=== PATIENT | male | born 1960 | race Caucasian/White ===

== ENCOUNTER 2016-12-06 09:30 | Day surgery (SDC) | payer OTHER ==
[~2016-12-06] VITALS: Ht 177.8 cm; Wt 83.9 kg
[~2016-12-06 09:30] MED LIST: NO MEDS; Sodium Chloride LOK Flush 10 mL Syringe IV PRN; fentaNYL-PF 50 mCg/mL 2 mL Inj IVPUSH PRN
[2016-12-06 09:40] VITALS: BP 155/98; PULSE 62; RESP 16; O2SAT 98
[2016-12-06] MEDS ORDERED: SIME180C42 PO (09:44)
[2016-12-06] MEDS ORDERED: ASPI325T32 PO (09:44)
[2016-12-06] MEDS: 0.9% Sodium Chloride 1,000 ML IV SCH ×3 (09:51→10:48)
[2016-12-06 11:00] VITALS: BP 157/100; PULSE 68; RESP 12; O2SAT 100
[2016-12-06 11:07] VITALS: BP 161/93; PULSE 74; RESP 12; O2SAT 99
--- NOTE | 2016-12-06 11:25 | ENDO ---
[address] [address] ENDOSCOPY PROCEDURE PATIENT: YAIR CURRAN : 1960 MR#: [id number] ADMIT: 12/06/2016 JOB ID: [id number] DATE: 12/06/2016 PROCEDURE: Colonoscopy. INDICATION: Colon cancer screening. The patient has a history of Hirschsprung's. The patient's ASA classification is 2. Mallampati score is 2. MEDICATIONS: None. INSTRUMENT USED: PCF H 180 AL PREPARATION QUALITY: Was fair. PROCEDURE DETAILS: After informed consent was obtained, the patient was brought into the GI suite, where he was placed on oxygen via nasal cannula and monitored with continuous pulse oximeter, telemetry and blood pressure monitoring. A time-out was performed. Then, he was placed in the left lateral decubitus position and medications were administered for sedation. Digital rectal examination was performed, which was unremarkable. The colonoscope was then inserted into the rectum and advanced to the proximal transverse colon. Beyond this point, I was unable to advance the colonoscope despite multiple position changes and the application of abdominal pressure, as the colon was quite redundant and tortuous. At this point, the colonoscope was then withdrawn back into the rectum as the mucosa and lumen were examined. In the rectum, retroflexion was performed. Following retroflexion, remaining air in the rectum was suctioned, and the procedure was completed. FINDINGS: 1. In the in the transverse colon, there were two polyps. They were approximately 3-4 mm each. Polyps removed using cold snare. 2. Small internal hemorrhoids were noted as the colonoscope was removed through the anal canal. IMPRESSION: 1. Incomplete colonoscopy. 2. Two transverse colon polyps. 3. Internal hemorrhoids. RECOMMENDATIONS: Will recommend CT colonography to evaluate portions of the colon not examined on today's colonoscopy. COMPLICATIONS: None. ESTIMATED BLOOD LOSS: Less than 5 mL.
--- NOTE | 2016-12-12 18:31 | PATH ---
SURGICAL PATHOLOGY Attending Physician:Argenis Delgado CASE STATUS: Signed Out PATIENT NAME: YAIR CURRAN PID: [id number] : 1960 DATE COLLECTED:12/06/2016 15:40 SPECIMEN: Colon, Polyp CLINICAL HISTORY: 1). TRANSVERSE COLON POLYPS X2 FINAL DIAGNOSIS: 1.TRANSVERSE COLON POLYPS, POLYPECTOMIES: TUBULAR ADENOMA X1. SEE COMMENT. ICD10 D12.3 NOTE: The smaller tissue fragment did not survive histologic processing. GROSS DESCRIPTION: The specimen is received in one formalin filled container labeled with the patient's name, sublabeled transverse colon polyps" and consists of 2 extremely tiny portions of tissue which aggregate to 0.2 x 0.2 x 0.2 CM. The specimen is entirely submitted in one cassette. 12/06/2016DC MICRO DESCRIPTION: See diagnosis. ICD-9 CODES: CPT CODES: 1: 35592 Electronically Signed Out Eduardo Bowman MD, Ph.D. [facility] Pathology [facility] [address], [place] [address] Technical component performed at [facility], [facility] [address], [place], [address]
== END 2016-12-06 23:59 | disposition home or self-care (01) ==
LOC: END 09:30
PROVIDERS: ATTEND Internal Medicine Gastroenterology
DX: Z12.11 Encounter for screening for malignant neoplasm of colon (principal); D12.3 Benign neoplasm of transverse colon; K64.8 Other hemorrhoids; Q43.1 Hirschsprung's disease; Z86.73 Personal history of transient ischemic attack (TIA), and cerebral infarction without residual deficits
CPT/HCPCS: 45385; 99153; G0500; J7030